=== PATIENT | male | born 1980 | race Caucasian/White ===

== ENCOUNTER 2017-05-20 13:48 | Outpatient (CLI) | payer BC ==
--- NOTE | 2017-05-20 15:49 | MRI ---
BRAIN MRI WITH AND WITHOUT CONTRAST: CLINICAL HISTORY: Pineal cyst, followup. COMPARISON: Reference is made to prior brain MRIs dating back to June 2014. FINDINGS: Redemonstration of pineal cyst, grossly stable approximating 9 mm in diameter. There is no discernib le internal nodular enhancement. 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 No interval acute intracranial abnormality. No pathologic intraaxial enhancement. No significant signal abnormalities of the brain parenchyma. IMPRESSION: 1. Stable pineal cyst. 2. Stable right side choroidal fissure cyst. POS: [facility]
[2017-05-20] MEDS ORDERED: Gadobenate Dimeglumine 529 MG/1 ML (20ML VIAL) ONE (15:53)
== END 2017-05-20 13:49 | disposition home or self-care (01) ==
LOC: TBSIIMAG 13:48
PROVIDERS: ATTEND Surgery
DX: E34.8 Other specified endocrine disorders (principal)
CPT/HCPCS: 70553; A9579

== ENCOUNTER 2017-06-10 13:21 | Outpatient (CLI) | payer BC ==
--- NOTE | 2017-06-10 15:12 | RAD ---
CERVICAL SPINE FIVE VIEWS: History: 36-year-old male with history of neck pain and headache. Exam excludes flexion and extension lateral views. FINDINGS: The tip of the odontoid and portions of C1 are partially obscured on the AP open mouth view. No preve rtebral soft tissue swelling. No significant anterior or retrolisthesis. No abnormal translation betw een flexion and extension. IMPRESSION: Very mild cervical spondylosis. No fracture or dislocation involving the visualized cervical spine. N o abnormal translation between flexion and extension. POS: [facility]
--- NOTE | 2017-06-10 15:45 | MRI ---
MRI CERVICAL SPINE NONCONTRAST: DATE: 06/10/17. HISTORY: A 36-year-old male with M54.2 cervicalgia (neck pain). FINDINGS: There is no Chiari I malformation. The cervical spinal cord is normal in size and signal. The verte bral body heights are maintained. No high-grade disk space narrowing at any level. No severe degene rative facet changes at any level. The findings by individual levels are as follows: C1-2: No central stenosis. C2-3: No central or neural foraminal narrowing. C3-4: Small left paracentral focal disk herniation indents the ventral surface of the spinal cord sl ightly to the left of midline. Overall degree of central spinal canal stenosis is mild. Bilateral s mall uncinate process osteophytes cause bilateral moderate neural foraminal stenosis. C4-5: Shallow, broad-based, disk-osteophytic bar complex encroaches upon the anterior aspect of the spinal canal, causing mild to moderate central spinal canal stenosis. Bilateral small- to moderate-s ized uncinate process osteophytes cause moderate right neural foraminal stenosis and mild left neural foraminal stenosis. C5-6: In addition to a broad-based disk-osteophytic bar complex which encroaches upon the anterior a spect of the spinal canal, there is a central, right paracentral, and right lateral focal disk hernia tion that abuts the right ventral surface of the spinal cord without indenting it. There is overall a moderate degree of central spinal canal stenosis. No right-sided neural foraminal stenosis. There is moderate left neural foraminal stenosis. C6-7: Minimal broad-based disk-osteophytic bar complex. No central stenosis. Mild to moderate righ t neural foraminal stenosis. Moderate left neural foraminal stenosis. C7-T1: No central or neural foraminal stenosis. IMPRESSION: 1. Mild cervical spondylosis. 2. Focal disk herniations at C3-4, and C5-6, indenting and abutting the spinal cord, respectively. 3. Varying degrees of neural foraminal stenosis. POS: [facility]
== END 2017-06-10 13:22 | disposition home or self-care (01) ==
LOC: TBSIIMAG 13:21
PROVIDERS: ATTEND Surgery
DX: M54.2 Cervicalgia (principal); M47.812 Spondylosis without myelopathy or radiculopathy, cervical region; M50.222 Other cervical disc displacement at C5-C6 level; M50.21 Other cervical disc displacement, high cervical region; M99.51 Intervertebral disc stenosis of neural canal of cervical region
CPT/HCPCS: 72050; 72141

== ENCOUNTER 2022-09-10 12:40 | Outpatient (CLI) | payer BC ==
[~2022-09-10 12:40] MED LIST: Magnevist 469MG/ML 20 ML VIAL ONE
== END 2022-09-10 12:41 | disposition home or self-care (01) ==
LOC: TBSIIMAG 12:40
PROVIDERS: ATTEND Surgery
DX: E34.8 Other specified endocrine disorders (principal)
CPT/HCPCS: 70553; A9579